=== PATIENT | female | born 1995 | race Caucasian/White ===

== ENCOUNTER 2017-01-07 15:03 | Emergency (ER) | payer OTHER ==
[2017-01-07 15:53] VITALS: BP 119/64
--- NOTE | 2017-01-07 16:24 | UC ---
General HPI - HPI Summary HPI Summary: Left submandibular swelling and mild tenderness. This has been presenfor about 3 -4 days. She denies lymph node enlargement anywhere else like in axilla or post neck. No fever. No sore throat or dental pain. No parotid glad tenderness. - History of Current Complaint Chief Complaint: UCGI Stated Complaint: LUMP IN JAW/PAINFUL Time Seen by Provider: 01/07/17 15:42 Hx Obtained From: Patient, Other: - I spoke with mother over the phone. Hx Last Menstrual Period: 12/27/16 Onset/Duration: Gradual Onset, Lasting Days Timing: Constant Onset Severity: Mild Current Severity: Mild Associated Signs & Symptoms: Negative: Fever, Headache, Melena, Nausea, Weakness - Allergy/Home Medications Allergies/Adverse Reactions: Allergies Allergy/AdvReac Type Severity Reaction Status Date / Time No Known Allergies Allergy Verified 01/07/17 15:53 PMH/Surg Hx/FS Hx/Imm Hx Previously Healthy: Yes - Surgical History Surgical History: Yes - Family History Known Family History: Positive: Hypertension - Social History Occupation: Student Alcohol Use: Occasionally Substance Use Type: None Smoking Status (MU): Former Smoker Review of Systems ENT: Other - Left swollen lymph node. All Other Systems Reviewed And Are Negative: Yes Physical Exam Triage Information Reviewed: Yes Appearance: Well-Appearing, No Pain Distress, Well-Nourished Vital Signs: Initial Vital Signs Temp 99.1 F 01/07/17 15:44 Pulse 95 01/07/17 15:44 Resp 16 01/07/17 15:44 BP 119/64 01/07/17 15:44 Pulse Ox 100 01/07/17 15:44 Vital Signs Reviewed: Yes Eyes: Positive: Conjunctiva Clear ENT Exam: Other - There is 50% swelling of the left submandibular lymph node compared to the right. No partod gland or salivary gland swelling. No dental percussion tenderness or gum swelling. NO posterior neck lymph node swelling. ENT: Positive: Normal ENT inspection, Hearing grossly normal, TMs normal, Uvula midline. Negative: Pharyngeal erythema, Nasal congestion, Nasal drainage, TM bulging, TM dull, TM red, Tonsillar swelling, Tonsillar exudate, Trismus, Muffled voice, Hoarse voice, Dental tenderness, Sinus tenderness Dental: Positive: Cervical Lymphadenopathy. Negative: Percussion Tenderness @, Gross Decay/Caries @, Dental Fracture @, Abscess @, Cellulitis @ Neck: Positive: Supple, Tenderness @, Enlarged Nodes @ - left submandibular. Respiratory Exam: Normal Respiratory: Positive: Chest non-tender, Lungs clear, Normal breath sounds, No respiratory distress, No accessory muscle use. Negative: Respiratory distress, Decreased breath sounds, Accessory muscle use, Crackles, Rhonchi, Stridor, Wheezing Cardiovascular: Positive: RRR, No Murmur, Pulses Normal, Brisk Capillary Refill Abdomen Description: Positive: Nontender, No Organomegaly Musculoskeletal Exam: Normal Musculoskeletal: Positive: Strength Intact, ROM Intact, No Edema Neurological: Positive: Alert, Muscle Tone Normal, Fatigued Skin: Negative: rashes Course/Dx - Course Course Of Treatment: There is one isolated left lymph node without any systemic symptoms. No signs of infection or abcess. Likely reactive lymph node and viral illness. We have considered mumps, leukemia, lymphoma, abcess, serious bacterial infection and I have discussed close follow up with daughter and mother and mother who is an ED doctor agrees to discuss the symptoms and enlargment with mother and if not better, they will f/u. I told them that I can refer them to ENT if not better in the next 1-2 weeks. - Differential Dx - Multi-Symptom Provider Diagnoses: left neck lymph node tenderness. Discharge - Discharge Plan Condition: Good Disposition: HOME Patient Education Materials: Lymphadenopathy (ED) Referrals: Non Staff,Doctor [Primary Care Provider] - Additional Instructions: Return on Thursday to get this re checked.
== END 2017-01-07 16:25 | disposition home or self-care (01) ==
LOC: UCCORT 15:03
DX: R59.9 Enlarged lymph nodes, unspecified (principal); Z87.891 Personal history of nicotine dependence
CPT/HCPCS: 99211; G0463